=== PATIENT | female | born 1975 | race Caucasian/White ===

== ENCOUNTER 2017-03-14 10:08 | Emergency (ER) | payer BC ==
[~2017-03-14 10:08] MED LIST: ZYVOX600 MG PO
[2017-03-14 11:05] LABS: HEMOGLOBIN 14.4 gm/dl (12.3-15.3); RED BLOOD COUNT 4.44 M/UL (4.00-5.10)
[2017-03-14 14:22] LABS: BUN/CREATININE RATIO 20 (0-10)
== END 2017-03-14 13:55 | disposition left against medical advice (07) ==
LOC: ER1 10:08
PROVIDERS: Emergency Medicine; Physician Assistant
DX: L03.114 Cellulitis of left upper limb (principal); L03.113 Cellulitis of right upper limb; L03.116 Cellulitis of left lower limb; L03.115 Cellulitis of right lower limb; E11.628 Type 2 diabetes mellitus with other skin complications; F32.9 Major depressive disorder, single episode, unspecified; F17.200 Nicotine dependence, unspecified, uncomplicated; Z88.0 Allergy status to penicillin; Z86.79 Personal history of other diseases of the circulatory system; Z88.2 Allergy status to sulfonamides; Z88.5 Allergy status to narcotic agent; Z88.6 Allergy status to analgesic agent; Z90.49 Acquired absence of other specified parts of digestive tract
CPT/HCPCS: 36415; 80053; 85025; 93971; 99284; Q9962

== ENCOUNTER 2020-10-12 12:22 | Inpatient (IN) | payer MEDICARE, OTHER ==
[~2020-10-12] VITALS: Ht 165.1 cm; Wt 97.1 kg
[~2020-10-12 12:22] MED LIST changes: +GLUCOPHAGE1000 MG PO; +GLUCOTROL5 MG PO; +HYDROCHLOROTHIA25 MG PO; +LEVEMIR100 UNIT/1 SQ; +LISINOPRIL5 MG PO; +PAXIL40 MG PO; +TRICOR 145 MG145 MG PO
[2020-10-12 14:49] LABS: HEMOGLOBIN 13.9 gm/dl (12.3-15.3); RED BLOOD COUNT 4.22 M/UL (4.00-5.10); WHITE BLOOD COUNT 16.2 K/UL (4.5-11.0)
[2020-10-12 15:11] LABS: BUN/CREATININE RATIO 19 (0-10)
[2020-10-12] MEDS ORDERED: FLONASE 0.05% N16 GM (19:31)
[2020-10-12] MEDS ORDERED: CYMBALTA30 MG PO (19:31)
[2020-10-12] MEDS ORDERED: OMEPRAZOLE20 MG PO (19:32)
[2020-10-12] MEDS ORDERED: VITAMIN D21250 MCG PO (19:33)
[2020-10-12] MEDS ORDERED: QUETIAPINE FUMA50 MG PO (19:33)
[2020-10-13 04:35] LABS: HEMOGLOBIN 12.6 gm/dl (12.3-15.3); RED BLOOD COUNT 3.89 M/UL (4.00-5.10)
[2020-10-13 04:46] LABS: WHITE BLOOD COUNT 10.9 K/UL (4.5-11.0)
[2020-10-13 04:53] LABS: BUN/CREATININE RATIO 17 (0-10)
[2020-10-14 06:20] LABS: BUN/CREATININE RATIO 16 (0-10)
[2020-10-14 10:58] LABS: HEMOGLOBIN 13.7 gm/dl (12.3-15.3); RED BLOOD COUNT 4.2 M/UL (4.00-5.10); WHITE BLOOD COUNT 11.4 K/UL (4.5-11.0)
--- NOTE | 2020-10-14 16:41 | NUR ---
return gabapentin 2 caps with witnessed lisy. spoken with pharmacist and informed of not showing on the list that it was returned. returned bin will be check of the return capsule
[2020-10-15 03:07] LABS: HEMOGLOBIN 13.6 gm/dl (12.3-15.3); RED BLOOD COUNT 4.14 M/UL (4.00-5.10); WHITE BLOOD COUNT 12.6 K/UL (4.5-11.0)
[2020-10-15 03:30] LABS: BUN/CREATININE RATIO 17 (0-10)
[2020-10-16 04:05] LABS: HEMOGLOBIN 13.6 gm/dl (12.3-15.3); RED BLOOD COUNT 4.15 M/UL (4.00-5.10); WHITE BLOOD COUNT 13.6 K/UL (4.5-11.0)
[2020-10-16 04:31] LABS: BUN/CREATININE RATIO 19 (0-10)
--- NOTE | 2020-10-16 17:16 | NUR ---
PROVIDED POST OP SHOES TO PATIENT
[2020-10-17 03:15] LABS: RED BLOOD COUNT 4.6 M/UL (4.00-5.10)
--- NOTE | 2020-10-17 16:38 | NUR ---
18G X 8CM MIDLINE INSERTED IN THE RIGHT BASILIC VEIN UNDER US GUIDANCE. ASPIRATES AND FLUSHES WELL. LOT# [id number]. NO COMPLICATIONS.
[2020-10-18] MEDS ORDERED: POVIDONE-IOD28.35 GM TOP (12:54)
[2020-10-18] MEDS ORDERED: LISINOPRIL10 MG PO (13:12)
[2020-10-18] MEDS ORDERED: CHLORTHALIDONE25 MG PO (13:12)
[2020-12-27] MEDS ORDERED: LIPITOR40 MG PO (00:21)
[2020-12-27] MEDS ORDERED: NEURONTIN800 MG PO (00:26)
[2020-12-27] MEDS ORDERED: HYDROCODON-ACE1 EAC6 PO (00:26)
[2020-12-27] MEDS ORDERED: NOVOLOG 10100 UNITS1 SC (00:29)
[2020-12-31] MEDS ORDERED: POVIDONE-IOD28.35 GM TOP (14:49)
[2021-03-05] MEDS ORDERED: AMLODIPINE BESYL5 MG PO (10:51)
== END 2020-10-18 15:46 | disposition home health service (06) | DRG 872 ==
LOC: ER1 12:22 → CDU 17:36 → M/S 17:36
PROVIDERS: Physician Assistant; Physician Assistant Medical; ADMIT Internal Medicine
DX: A41.89 Other specified sepsis (principal); L03.116 Cellulitis of left lower limb; L03.115 Cellulitis of right lower limb; E11.621 Type 2 diabetes mellitus with foot ulcer; L97.529 Non-pressure chronic ulcer of other part of left foot with unspecified severity; Z20.822 Contact with and (suspected) exposure to COVID-19; E11.65 Type 2 diabetes mellitus with hyperglycemia; L97.519 Non-pressure chronic ulcer of other part of right foot with unspecified severity; I10 Essential (primary) hypertension; F17.210 Nicotine dependence, cigarettes, uncomplicated; Z82.49 Family history of ischemic heart disease and other diseases of the circulatory system; Z83.3 Family history of diabetes mellitus; Z90.49 Acquired absence of other specified parts of digestive tract; Z90.710 Acquired absence of both cervix and uterus; Z88.0 Allergy status to penicillin; Z88.6 Allergy status to analgesic agent; Z88.5 Allergy status to narcotic agent; Z88.2 Allergy status to sulfonamides; E11.628 Type 2 diabetes mellitus with other skin complications
CPT/HCPCS: 36415; 73630; 73700; 73702; 80048; 80053; 80202; 81001; 82962; 83036; 83605; 83735; 85025; 85027; 85652; 86140; 87040; 87077; 87186; 90471; 93925; 96365; 96366; 96372; 96375; 99285; C1751; J0360; J1650; J2185; J3370; J7030; J7050; J7070; Q9967; U0002

== ENCOUNTER 2020-11-13 18:11 | Emergency (ER) | payer BC ==
[~2020-11-13 18:11] MED LIST changes: +CHLORTHALIDONE25 MG PO; +CYMBALTA30 MG PO; +FLONASE 0.05% N16 GM; +LISINOPRIL10 MG PO; +OMEPRAZOLE20 MG PO; +POVIDONE-IOD28.35 GM TOP; +QUETIAPINE FUMA50 MG PO; +VITAMIN D21250 MCG PO
[2020-12-27] MEDS ORDERED: LIPITOR40 MG PO (00:21)
[2020-12-27] MEDS ORDERED: HYDROCODON-ACE1 EAC6 PO (00:26)
[2020-12-27] MEDS ORDERED: NEURONTIN800 MG PO (00:26)
[2020-12-27] MEDS ORDERED: NOVOLOG 10100 UNITS1 SC (00:29)
[2020-12-31] MEDS ORDERED: POVIDONE-IOD28.35 GM TOP (14:49)
[2021-03-05] MEDS ORDERED: AMLODIPINE BESYL5 MG PO (10:51)
== END 2020-11-13 20:20 | disposition left against medical advice (07) ==
LOC: ER1 18:11
DX: Z53.21 Procedure and treatment not carried out due to patient leaving prior to being seen by health care provider (principal)

== ENCOUNTER 2020-12-27 10:57 | Inpatient (IN) | payer OTHER, MEDICARE ==
[~2020-12-27] VITALS: Ht 165.1 cm; Wt 90.7 kg
[~2020-12-27 10:57] MED LIST changes: +HYDROCODON-ACE1 EAC6 PO; +LIPITOR40 MG PO; +NEURONTIN800 MG PO; +NOVOLOG 10100 UNITS1 SC
[2020-12-27 12:15] LABS: HEMOGLOBIN 13.8 gm/dl (12.3-15.3); RED BLOOD COUNT 4.28 M/UL (4.00-5.10); WHITE BLOOD COUNT 16.8 K/UL (4.5-11.0)
[2020-12-27] MEDS ORDERED: ALBUTEROL2.5 MG/3 M INH (15:04)
[2020-12-27] MEDS ORDERED: LISINOPRIL10 MG PO (15:18)
[2020-12-27] MEDS ORDERED: BASAGLAR K100 UNIT/1 SQ (19:29)
[2020-12-27] MEDS ORDERED: KLONOPIN1 MG PO (19:30)
[2020-12-28 06:44] LABS: HEMOGLOBIN 12.5 gm/dl (12.3-15.3); RED BLOOD COUNT 3.98 M/UL (4.00-5.10)
[2020-12-28 07:04] LABS: BUN/CREATININE RATIO 13 (0-10)
[2020-12-29 04:57] LABS: BUN/CREATININE RATIO 7 (0-10)
[2020-12-30 03:08] LABS: HEMOGLOBIN 11.7 gm/dl (12.3-15.3); RED BLOOD COUNT 3.73 M/UL (4.00-5.10); WHITE BLOOD COUNT 11.5 K/UL (4.5-11.0)
[2020-12-30 04:24] LABS: BUN/CREATININE RATIO 10 (0-10)
[2020-12-31 06:08] LABS: HEMOGLOBIN 12.1 gm/dl (12.3-15.3); RED BLOOD COUNT 3.92 M/UL (4.00-5.10); WHITE BLOOD COUNT 10.3 K/UL (4.5-11.0)
[2020-12-31 06:29] LABS: BUN/CREATININE RATIO 14 (0-10)
--- NOTE | 2020-12-31 07:53 | NUR ---
ATTEMPTED SEVERAL TIMES TO CONTACT DR. ARRIETA [employer] SENIOR AFTER ONE TIME HE ANSWERED AND STATED [employer] CUTTING IN AND OUT ON OUR [employer]. CONTACTED SEVERAL TIMES AND GOES TO VOICE MAIL.
--- NOTE | 2020-12-31 09:49 | NUR ---
PATEINT OFF THE FLOOR SMOKING
[2020-12-31] MEDS ORDERED: POVIDONE-IOD28.35 GM TOP (14:49)
--- NOTE | 2020-12-31 15:16 | NUR ---
has been trying to call family to obtain dnr status for transport via ambulance with no success. has been trying to call [facility] for report with no success
--- NOTE | 2020-12-31 17:56 | NUR ---
report given to admitting nurse of [facility] Amy.
== END 2020-12-31 18:48 | disposition home or self-care (01) | DRG 617 ==
LOC: ER1 10:57 → CDU 14:50 → M/S 14:50
PROVIDERS: Emergency Medicine; Physician Assistant; Physician Assistant Medical; Podiatrist Foot & Ankle Surgery; ADMIT Internal Medicine
PROC: 0Y6W0Z0 Detachment at Left 4th Toe, Complete, Open Approach (ICD-10-PCS; principal; 2020-12-28 11:45)
DX: E11.69 Type 2 diabetes mellitus with other specified complication (principal); E11.52 Type 2 diabetes mellitus with diabetic peripheral angiopathy with gangrene; M86.8X7 Other osteomyelitis, ankle and foot; L03.116 Cellulitis of left lower limb; M00.872 Arthritis due to other bacteria, left ankle and foot; Z20.822 Contact with and (suspected) exposure to COVID-19; E87.6 Hypokalemia; E78.5 Hyperlipidemia, unspecified; F32.9 Major depressive disorder, single episode, unspecified; E11.40 Type 2 diabetes mellitus with diabetic neuropathy, unspecified; I12.9 Hypertensive chronic kidney disease with stage 1 through stage 4 chronic kidney disease, or unspecified chronic kidney disease; N18.9 Chronic kidney disease, unspecified; F17.210 Nicotine dependence, cigarettes, uncomplicated; I95.9 Hypotension, unspecified; E11.621 Type 2 diabetes mellitus with foot ulcer; Z79.4 Long term (current) use of insulin; Z90.49 Acquired absence of other specified parts of digestive tract; Z90.710 Acquired absence of both cervix and uterus; Z88.5 Allergy status to narcotic agent; Z88.0 Allergy status to penicillin; Z88.2 Allergy status to sulfonamides; Z88.8 Allergy status to other drugs, medicaments and biological substances
CPT/HCPCS: 36415; 73552; 73590; 73630; 73700; 80048; 80053; 80202; 82962; 83605; 83735; 85025; 85027; 85652; 86140; 87040; 87070; 87077; 87186; 87205; 93971; 94760; 99285; A6212; C1751; J1650; J1956; J2001; J2250; J2270; J2704; J2795; J3010; J3370; J7030; J7070; J7120; Q4133; U0002

== ENCOUNTER 2021-03-02 12:20 | Inpatient (IN) | payer MEDICARE, OTHER ==
[~2021-03-02] VITALS: Ht 165.1 cm; Wt 90.7 kg
[~2021-03-02 12:20] MED LIST changes: +ALBUTEROL2.5 MG/3 M INH; +BASAGLAR K100 UNIT/1 SQ; +KLONOPIN1 MG PO
[2021-03-02 13:25] LABS: HEMOGLOBIN 14.5 gm/dl (12.3-15.3); RED BLOOD COUNT 4.51 M/UL (4.00-5.10); WHITE BLOOD COUNT 11.8 K/UL (4.5-11.0)
[2021-03-02 13:45] LABS: BUN/CREATININE RATIO 21 (0-10)
[2021-03-03 07:00] LABS: HEMOGLOBIN 14.9 gm/dl (12.3-15.3); RED BLOOD COUNT 4.68 M/UL (4.00-5.10); WHITE BLOOD COUNT 12.2 K/UL (4.5-11.0)
[2021-03-03 07:09] LABS: BUN/CREATININE RATIO 15 (0-10)
[2021-03-04 06:39] LABS: RED BLOOD COUNT 4.73 M/UL (4.00-5.10); WHITE BLOOD COUNT 16.3 K/UL (4.5-11.0)
[2021-03-04 07:19] LABS: BUN/CREATININE RATIO 12 (0-10)
[2021-03-05 03:50] LABS: HEMOGLOBIN 13.1 gm/dl (12.3-15.3); WHITE BLOOD COUNT 12.6 K/UL (4.5-11.0)
[2021-03-05 03:52] LABS: RED BLOOD COUNT 4.12 M/UL (4.00-5.10)
[2021-03-05 05:03] LABS: BUN/CREATININE RATIO 12 (0-10)
[2021-03-05] MEDS ORDERED: AMLODIPINE BESYL5 MG PO (10:51)
[2021-03-06 04:37] LABS: HEMOGLOBIN 13.3 gm/dl (12.3-15.3); RED BLOOD COUNT 4.2 M/UL (4.00-5.10); WHITE BLOOD COUNT 10.6 K/UL (4.5-11.0)
[2021-03-06 05:04] LABS: BUN/CREATININE RATIO 14 (0-10)
== END 2021-03-06 15:45 | disposition home or self-care (01) | DRG 690 ==
LOC: ER1 12:20 → CDU 17:50 → MED SURG 4 18:35
PROVIDERS: Physician Assistant; ADMIT Internal Medicine
DX: N10 Acute pyelonephritis (principal); I16.1 Hypertensive emergency; E11.621 Type 2 diabetes mellitus with foot ulcer; L97.529 Non-pressure chronic ulcer of other part of left foot with unspecified severity; Z20.822 Contact with and (suspected) exposure to COVID-19; E66.01 Morbid (severe) obesity due to excess calories; G89.29 Other chronic pain; I10 Essential (primary) hypertension; F17.210 Nicotine dependence, cigarettes, uncomplicated; F11.90 Opioid use, unspecified, uncomplicated; F12.90 Cannabis use, unspecified, uncomplicated; E78.5 Hyperlipidemia, unspecified; Z90.49 Acquired absence of other specified parts of digestive tract; Z79.4 Long term (current) use of insulin; Z87.39 Personal history of other diseases of the musculoskeletal system and connective tissue; Z89.422 Acquired absence of other left toe(s); Z90.710 Acquired absence of both cervix and uterus; Z88.6 Allergy status to analgesic agent; Z88.0 Allergy status to penicillin; Z88.2 Allergy status to sulfonamides; Z88.8 Allergy status to other drugs, medicaments and biological substances; Z82.49 Family history of ischemic heart disease and other diseases of the circulatory system; Z83.3 Family history of diabetes mellitus; Z71.6 Tobacco abuse counseling; Z68.33 Body mass index [BMI] 33.0-33.9, adult
CPT/HCPCS: 36415; 71045; 73630; 73718; 80048; 80053; 80307; 81001; 82550; 82553; 82962; 83605; 83735; 83874; 84132; 84484; 85025; 85652; 86140; 87040; 87086; 93005; 96365; 96366; 96375; 99285; J0360; J0692; J0696; J1335; J1650; J2185; J2270; J2405; J3370; J7030; U0002

== ENCOUNTER 2021-05-08 11:49 | Observation (INO) | payer MEDICARE, OTHER ==
[~2021-05-08] VITALS: Ht 165.1 cm; Wt 88.9 kg
[~2021-05-08 11:49] MED LIST changes: +AMLODIPINE BESYL5 MG PO
[2021-05-08 14:11] LABS: HEMOGLOBIN 15.6 gm/dl (12.3-15.3); RED BLOOD COUNT 4.75 M/UL (4.00-5.10); WHITE BLOOD COUNT 13.5 K/UL (4.5-11.0)
[2021-05-09 07:08] LABS: WHITE BLOOD COUNT 13.7 K/UL (4.5-11.0)
[2021-05-09 07:12] LABS: HEMOGLOBIN 12.6 gm/dl (12.3-15.3); RED BLOOD COUNT 4.08 M/UL (4.00-5.10)
== END 2021-05-09 12:25 | disposition home or self-care (01) ==
LOC: ER1 11:49 → CDU 16:44 → M/S 16:44
PROVIDERS: Nurse Practitioner; Physician Assistant Medical; ADMIT Internal Medicine
DX: E11.65 Type 2 diabetes mellitus with hyperglycemia (principal); N17.9 Acute kidney failure, unspecified; S70.01XA Contusion of right hip, initial encounter; I11.0 Hypertensive heart disease with heart failure; I50.9 Heart failure, unspecified; E78.5 Hyperlipidemia, unspecified; F17.210 Nicotine dependence, cigarettes, uncomplicated; Z20.822 Contact with and (suspected) exposure to COVID-19; Z90.710 Acquired absence of both cervix and uterus; Z90.49 Acquired absence of other specified parts of digestive tract; Z88.0 Allergy status to penicillin; Z88.2 Allergy status to sulfonamides; Z88.5 Allergy status to narcotic agent; Z88.6 Allergy status to analgesic agent; Z79.4 Long term (current) use of insulin; Z79.899 Other long term (current) drug therapy; Z91.14 Patient's other noncompliance with medication regimen; W20.0XXA Struck by falling object in cave-in, initial encounter
CPT/HCPCS: 36415; 36600; 51701; 71045; 73522; 80048; 80053; 81001; 82009; 82436; 82803; 82962; 83605; 83690; 83735; 83880; 83935; 84133; 84300; 85025; 85027; 93005; 96374; 96375; 96376; 99285; G0378; J2270; J2405; J7030; Q9967; U0002

== ENCOUNTER 2021-06-21 10:46 | Emergency (ER) | payer MEDICARE, OTHER ==
[2021-06-21 12:42] LABS: HEMOGLOBIN 14.8 gm/dl (12.3-15.3); RED BLOOD COUNT 4.5 M/UL (4.00-5.10); WHITE BLOOD COUNT 12.9 K/UL (4.5-11.0)
[2021-06-21 13:13] LABS: BUN/CREATININE RATIO 20 (0-10)
== END 2021-06-21 16:15 | disposition home or self-care (01) ==
LOC: ER1 10:46
PROVIDERS: Physician Assistant Medical
DX: R55 Syncope and collapse (principal); R56.9 Unspecified convulsions; I11.0 Hypertensive heart disease with heart failure; I50.9 Heart failure, unspecified; E78.5 Hyperlipidemia, unspecified; E11.40 Type 2 diabetes mellitus with diabetic neuropathy, unspecified; F17.210 Nicotine dependence, cigarettes, uncomplicated; Z90.710 Acquired absence of both cervix and uterus; Z90.49 Acquired absence of other specified parts of digestive tract; Z88.0 Allergy status to penicillin; Z88.5 Allergy status to narcotic agent
CPT/HCPCS: 70450; 71045; 80053; 80307; 81001; 82550; 82553; 82962; 83605; 83874; 83880; 84484; 85025; 85379; 93005; 99284

== ENCOUNTER 2021-07-10 17:03 | Emergency (ER) | payer MEDICARE, OTHER ==
[2021-07-10] MEDS ORDERED: LAXATIVE SUPPO1 EACH PR (20:49)
[2021-07-10] MEDS ORDERED: MIRALAX17 GM PO (20:49)
== END 2021-07-10 21:04 | disposition home or self-care (01) ==
LOC: ER1 17:03
DX: K59.00 Constipation, unspecified (principal); E11.9 Type 2 diabetes mellitus without complications; I11.0 Hypertensive heart disease with heart failure; I50.9 Heart failure, unspecified; Z90.49 Acquired absence of other specified parts of digestive tract; Z90.710 Acquired absence of both cervix and uterus; Z88.6 Allergy status to analgesic agent; Z88.0 Allergy status to penicillin; Z88.2 Allergy status to sulfonamides; F17.210 Nicotine dependence, cigarettes, uncomplicated
CPT/HCPCS: 74018; 99283

== ENCOUNTER 2021-09-17 13:15 | Emergency (ER) | payer MEDICARE, OTHER ==
[~2021-09-17 13:15] MED LIST changes: +LAXATIVE SUPPO1 EACH PR; +MIRALAX17 GM PO
== END 2021-09-17 20:38 | disposition left against medical advice (07) ==
LOC: ER1 13:15
DX: M54.50 Low back pain, unspecified (principal); I11.0 Hypertensive heart disease with heart failure; I50.9 Heart failure, unspecified; E11.9 Type 2 diabetes mellitus without complications; F17.210 Nicotine dependence, cigarettes, uncomplicated; Z88.0 Allergy status to penicillin; Z88.2 Allergy status to sulfonamides; Z88.6 Allergy status to analgesic agent; Z88.5 Allergy status to narcotic agent; E78.00 Pure hypercholesterolemia, unspecified
CPT/HCPCS: 99282

== ENCOUNTER → 2021-09-18 | Emergency (ER) | payer MEDICARE, OTHER | END | disposition home or self-care (01) | LOC: ER1 10:12 | DX: M54.50 Low back pain, unspecified (principal); I11.0 Hypertensive heart disease with heart failure; I50.9 Heart failure, unspecified; F17.200 Nicotine dependence, unspecified, uncomplicated; E78.5 Hyperlipidemia, unspecified; Z90.710 Acquired absence of both cervix and uterus; Z90.49 Acquired absence of other specified parts of digestive tract | CPT/HCPCS: 72131; 82962; 99284 ==

== ENCOUNTER → 2022-02-12 | Outpatient (CLI) | payer MEDICARE, OTHER | LOC: KOH-I 14:08 | DX: S82.832A Other fracture of upper and lower end of left fibula, initial encounter for closed fracture (principal); S93.492A Sprain of other ligament of left ankle, initial encounter; S93.432A Sprain of tibiofibular ligament of left ankle, initial encounter | CPT/HCPCS: 73721 ==

== ENCOUNTER 2022-04-26 18:50 | Emergency (ER) | payer MEDICARE, OTHER ==
[2022-04-26 19:44] LABS: HEMOGLOBIN 13.6 gm/dl (12.3-15.3); RED BLOOD COUNT 4.31 M/UL (4.00-5.10); WHITE BLOOD COUNT 16.8 K/UL (4.5-11.0)
== END 2022-04-27 02:54 | disposition home or self-care (01) ==
LOC: ER1 18:50
PROVIDERS: Student in an Organized Health Care Education/Training Program
DX: E11.65 Type 2 diabetes mellitus with hyperglycemia (principal); I11.0 Hypertensive heart disease with heart failure; I50.9 Heart failure, unspecified; F17.210 Nicotine dependence, cigarettes, uncomplicated; Z88.1 Allergy status to other antibiotic agents
CPT/HCPCS: 71045; 80053; 81001; 82550; 82553; 82962; 84484; 85025; 93005; 96361; 96374; 96376; 99285

== ENCOUNTER 2022-05-13 14:57 | Emergency (ER) | payer MEDICARE, OTHER ==
[2022-05-13 16:23] LABS: HEMOGLOBIN 14.5 gm/dl (12.3-15.3); RED BLOOD COUNT 4.53 M/UL (4.00-5.10); WHITE BLOOD COUNT 14.5 K/UL (4.5-11.0)
[2022-05-13 16:51] LABS: BUN/CREATININE RATIO 18 (0-10)
== END 2022-05-13 21:45 | disposition home or self-care (01) ==
LOC: ER1 14:57
PROVIDERS: Physician Assistant
DX: M54.41 Lumbago with sciatica, right side (principal); E11.65 Type 2 diabetes mellitus with hyperglycemia; R00.0 Tachycardia, unspecified; E78.5 Hyperlipidemia, unspecified; I11.0 Hypertensive heart disease with heart failure; I50.9 Heart failure, unspecified; E11.40 Type 2 diabetes mellitus with diabetic neuropathy, unspecified; F17.210 Nicotine dependence, cigarettes, uncomplicated; Z90.710 Acquired absence of both cervix and uterus; Z88.0 Allergy status to penicillin; Z88.2 Allergy status to sulfonamides; Z88.6 Allergy status to analgesic agent; Z88.5 Allergy status to narcotic agent; Z20.822 Contact with and (suspected) exposure to COVID-19
CPT/HCPCS: 0240U; 71045; 72131; 80053; 81001; 82550; 82553; 82962; 83690; 83880; 84484; 85025; 87086; 96361; 96374; 99285; J7040